=== PATIENT | male | born 1970 | race Caucasian/White ===

== ENCOUNTER 2020-04-16 05:49 | Inpatient (IN) | payer BC ==
[~2020-04-16] VITALS: Ht 190.5 cm; Wt 136.0 kg
[2020-04-16] MEDS ORDERED: LACTATED RINGERS 1,000 ML IVBOLUS ONE (06:00)
--- NOTE | 2020-04-16 06:06 | NUR ---
BIBA transfer from [facility], pt was staying at [facility] this evening when he had a sudden onset of N/V/D approx at 2200. Pt went to [place] where he had a near-syncopal episode and became diaphoretic in addition to N/V/D. Pt reports watery stool and states "some is black." Pt receieved zosyn, tylenol, 3 liters NSS, and zofran prior to transfer. Upon arrival to [facility] ED, pt is pale and c/o weakness and nausea. Pt immedietely states he needed to use the restroom and proceeded to have episode of diarrhea and vomiting
--- NOTE | 2020-04-16 06:10 | NUR ---
Attempted to obtain stool sample while pt in restroom, pt provided with hat for toilet, pt states he was unable to collect sample. Bedside comode placed in pts room at this time and informed pt a sample is still needed, pt verbalized understanding
[2020-04-16] MEDS ORDERED: PROCHLORPERAZINE 5 MG/ML, 2ML ONE (06:15)
[2020-04-16] MEDS ORDERED: PLEASE ENTER ALLERGIES MC SCH (06:30)
[2020-04-16] MEDS ORDERED: PROCHLORPERAZINE 5 MG/ML, 2ML IVPush ONE (06:30)
[2020-04-16 06:31] LABS: ALBUMIN 3.7 g/dL (3.4-5.0); ANION GAP 4 mmol/L (5-15); CALCIUM 8.6 mg/dL (8.5-10.1); CHLORIDE 112 mmol/L (98-107); CREATININE 1.49 mg/dL (0.7-1.3)
--- NOTE | 2020-04-16 06:57 | NUR ---
handoff report received from ATTILA REED
--- NOTE | 2020-04-16 07:39 | NUR ---
Pt up to use bedside commode, unable to provide enough stool for sample. LR infusing. Placed on NC @ 2L/min while sleeping, no resp distress noted. Updated on POC.
--- NOTE | 2020-04-16 07:42 | NUR ---
Hospitalist at bedside
--- NOTE | 2020-04-16 07:56 | NUR ---
[facility] TELEPHONE HAND-OFF REPORT GIVEN TO BRIANNA SAUCEDA.
[2020-04-16] MEDS ORDERED: CHOL10003 PO (07:58)
[2020-04-16] MEDS ORDERED: ONDANSETRON 2MG/ML, 2ML IVPush PRN (08:00)
[2020-04-16] MEDS ORDERED: ONDANSETRON ODT 4 MG PO PRN (08:00)
[2020-04-16] MEDS ORDERED: DOCUSATE 100 MG CAPSULE PO PRN (08:00)
[2020-04-16] MEDS ORDERED: POLYETHYLENE GLYCOL 17 GM PACKET PO PRN (08:00)
--- NOTE | 2020-04-16 08:06 | NUR ---
NOTIFIED BRIANNA SAUCEDA THAT PATIENT IS NOT A COVID RULE-OUT PER HOSPITALIST.
[2020-04-16 08:28] LABS: TROPONIN I < 0.015 ng/mL (0.000-0.045)
[2020-04-16 08:48] VITALS: BP 120/69
[2020-04-16] MEDS ORDERED: DEXTROSE 50%, 50ML SYRINGE ONE (09:19)
[2020-04-16 09:41] LABS: CRYPTOSPORIDIUM ANTIGEN Negative (Negative)
[2020-04-16 09:44] LABS: CLOSTRIDIUM DIFFICILE ANTIGEN NEGATIVE; CLOSTRIDIUM DIFFICILE TOXIN NEGATIVE (Negative)
[2020-04-16] MEDS: LACTATED RINGERS 1,000 ML IV SCH (10:35)
[2020-04-16 14:00] VITALS: BP 104/52
[2020-04-16 14:04] LABS: TROPONIN I < 0.015 ng/mL (0.000-0.045)
[2020-04-16] MEDS: ACETAMINOPHEN 325 MG TABLET PO PRN (18:10)
[2020-04-16 19:48] VITALS: BP 108/69
[2020-04-16 19:51] LABS: TROPONIN I < 0.015 ng/mL (0.000-0.045)
[2020-04-17 00:08] VITALS: BP 93/61
[2020-04-17] MEDS: LACTATED RINGERS 1,000 ML IV SCH ×2 (00:11→08:25)
[2020-04-17 07:52] VITALS: BP 102/65
[2020-04-17 08:12] LABS: BASOPHILS % (AUTO) 1 % (0-1); EOSINOPHILS % (AUTO) 0 % (1-7); LYMPHOCYTES % (AUTO) 19 % (22-44); MEAN CORPUSCULAR HEMOGLOBIN 28.6 pg (27.5-34.5); MEAN CORPUSCULAR HGB CONC 32.5 g/dL (33.2-36.2); MEAN PLATELET VOLUME 8.9 fL (7.4-10.4); MONOCYTES % (AUTO) 9 % (2-9); NEUTROPHILS % (AUTO) 71 % (42-75); PLATELET COUNT 123 x10^3/uL (130-400); RED BLOOD COUNT 5.01 x10^6/uL (4.38-5.82); RED CELL DISTRIBUTION WIDTH 13.7 % (9.4-14.8)
[2020-04-17 08:13] LABS: MD NO
[2020-04-17 08:19] LABS: CHLORIDE 113 mmol/L (98-107)
[2020-04-17 08:20] LABS: ALANINE AMINOTRANSFERASE 48 U/L (12-78); ALBUMIN 2.9 g/dL (3.4-5.0); ANION GAP 5 mmol/L (5-15); CALCIUM 8.1 mg/dL (8.5-10.1)
[2020-04-17 08:22] LABS: ALKALINE PHOSPHATASE 47 U/L (45-117); BILIRUBIN,TOTAL 0.5 mg/dL (0.2-1.0); TOTAL PROTEIN 5.9 g/dL (6.4-8.2)
[2020-04-17] MEDS: ACETAMINOPHEN 325 MG TABLET PO PRN (08:41)
[2020-04-17] MEDS ORDERED: POTASSIUM CHLORIDE 20 MEQ TAB.ER.PRT PO ONE (10:00)
== END 2020-04-17 11:26 | disposition home or self-care (01) | DRG 871 ==
LOC: ED 06:38 → EDIP 07:20 → 4WST 08:35 → DCLOUNGE 04-17 11:19
PROVIDERS: ADMIT Hospitalist; ATTEND Family Medicine
DX: A41.9 Sepsis, unspecified organism (principal); N17.0 Acute kidney failure with tubular necrosis; K52.9 Noninfective gastroenteritis and colitis, unspecified; E66.9 Obesity, unspecified; Z71.3 Dietary counseling and surveillance; Z68.37 Body mass index [BMI] 37.0-37.9, adult; G89.29 Other chronic pain; M54.9 Dorsalgia, unspecified; R65.20 Severe sepsis without septic shock; E86.0 Dehydration
CPT/HCPCS: 36415; 80048; 80053; 82040; 83605; 84145; 84484; 85025; 87040; 87046; 87324; 87328; 87329; 87427; 89055; 93005; 96374; 99285; G0378; J0780; J7120